=== PATIENT | female | born 1995 | race Caucasian/White ===

== ENCOUNTER 2021-01-10 14:29 | Outpatient (REF) | payer OTHER, SELFPAY | END 2021-01-10 14:30 | disposition home or self-care (01) | LOC: HO.LAB 14:29 | PROVIDERS: Visit Provider Internal Medicine | DX: Z12.4 Encounter for screening for malignant neoplasm of cervix (principal) | CPT/HCPCS: 88142 ==

== ENCOUNTER 2021-01-11 13:18 | Outpatient (REF) | payer OTHER, SELFPAY ==
[2021-01-11 16:26] LABS: Hematocrit 39.3 % (37-47); Hemoglobin 13.2 g/dl (12.0-16.0); Mean Corpuscular HGB Conc 33.6 g/dl (31.0-35.0); Mean Corpuscular Volume 95.4 fL (80-98); Mean Platelet Volume 10.4 fL (9.4-12.3); Platelet Count 310 X10*3/uL (160-400); Red Blood Count 4.12 X10*6/uL (4.20-5.50); Red Cell Distribution Width 12.1 % (11.0-16.0); White Blood Count 7.3 X10*3/uL (4.8-10.8)
[2021-01-11 16:31] LABS: Glucose Urine UA NEG (NEG); Leukocyte Esterase Urine NEG (NEG); Nitrite Urine NEG (NEG); Urine Blood TRACE (NEG); Urine Ketones NEG (NEG); Urine Protein NEG (NEG-TRACE)
[2021-01-11 16:36] LABS: Appearance Urine CLEAR; Color Urine YELLOW
[2021-01-11 16:48] LABS: Bacteria Urine TRACE /LPF; RBC Urine 0-2 /HPF (0); Squamous Epithelial Cell Urine TRACE /LPF; WBC Urine 0-2 /HPF (0-4)
[2021-01-11 16:53] LABS: Alanine Aminotransferase 11 U/L (0-31); Albumin Level 4.6 g/dL (3.5-5.0); Alkaline Phosphatase 63 U/L (39-117); Anion Gap 14 (12-20); Aspartate Amino Transferase 14 U/L (5-31); Bilirubin Total 0.5 mg/dL (0.0-1.0); Blood Urea Nitrogen 7 mg/dL (9-16); Calcium 9.5 mg/dL (8.4-10.2); Carbon Dioxide 20 mmol/L (22-29); Chloride 109 mmol/L (96-108); Cholesterol 237 mg/dL; Estimated Glomerular Filt Rate > 60; Glucose Fasting 84 mg/dL (60-99); HDL Cholesterol 42 mg/dL; LDL Cholesterol Calculated 171 mg/dl; Potassium 4.3 mmol/L (3.3-5.1); Sodium 139 mmol/L (135-145); Total Protein 7.4 g/dL (6.5-8.0); Triglycerides 120 mg/dL
[2021-01-11 17:13] LABS: TSH reflex Free T4 0.61 uIU/mL (0.32-4.0)
== END 2021-01-11 13:19 | disposition home or self-care (01) ==
LOC: HO.HMGCLDS 13:18
PROVIDERS: PCP Internal Medicine; Visit Provider Internal Medicine
DX: Z00.00 Encounter for general adult medical examination without abnormal findings (principal); J45.909 Unspecified asthma, uncomplicated
CPT/HCPCS: 36415; 80053; 80061; 81001; 84443; 85027

== ENCOUNTER 2022-04-23 08:28 | Outpatient (REF) | payer OTHER, SELFPAY ==
[2022-04-23 11:20] LABS: MANUAL DIFF FLAG NO
[2022-04-23 11:58] LABS: Alanine Aminotransferase 12 U/L (0-31); Albumin Level 4.6 g/dL (3.5-5.0); Alkaline Phosphatase 50 U/L (39-117); Anion Gap 14 (12-20); Aspartate Amino Transferase 17 U/L (5-31); Bilirubin Total 0.3 mg/dL (0.0-1.0); Blood Urea Nitrogen 12 mg/dL (9-16); Calcium 9.2 mg/dL (8.4-10.2); Carbon Dioxide 21 mmol/L (22-29); Chloride 107 mmol/L (96-108); Cholesterol 269 mg/dL; Estimated Glomerular Filt Rate > 60; Glucose Fasting 91 mg/dL (60-99); HDL Cholesterol 51 mg/dL; LDL Cholesterol Calculated 205 mg/dl; Potassium 4.1 mmol/L (3.3-5.1); Sodium 138 mmol/L (135-145); Total Protein 7.2 g/dL (6.5-8.0); Triglycerides 68 mg/dL
[2022-04-23 12:05] LABS: Basophils Absolute Auto 0.1 X10*3/uL (0.0-0.2); Basophils Percent Auto 0.7 % (0-2); Eosinophils Absolute Auto 0.4 X10*3/uL (0.0-0.4); Eosinophils Percent Auto 6.3 % (0-4); Hematocrit 37.3 % (37.0-47.0); Hemoglobin 12.7 g/dl (12.0-16.0); Imm Gran Abs Auto 0.01 X10*3/uL (0.00-0.03); Imm Gran Pct Auto 0.1 % (0.0-0.4); Lymphocytes Absolute Auto 2.3 X10*3/uL (1.2-4.9); Lymphocytes Percent Auto 34.1 % (20-40); Mean Corpuscular Hemoglobin 32.7 pg (27.0-33.0); Mean Corpuscular Volume 96.1 fL (80.0-98.0); Mean Platelet Volume 10.5 fL (9.4-12.3); Monocytes Absolute Auto 0.4 X10*3/uL (0.1-1.2); Monocytes Percent Auto 5.5 % (2-11); Neutrophils Absolute Auto 3.6 x10*3/uL (2.0-8.3); Neutrophils Percent Auto 53.3 % (45-73); Platelet Count 285 X10*3/uL (160-400); Red Blood Count 3.88 X10*6/uL (4.20-5.50); Red Cell Distribution Width 12.2 % (11.0-16.0); White Blood Count 6.7 X10*3/uL (4.8-10.8)
[2022-04-23 12:06] LABS: TSH reflex Free T4 0.99 uIU/mL (0.32-4.0)
== END 2022-04-23 08:29 | disposition home or self-care (01) ==
LOC: HO.HMGCLDS 08:28
PROVIDERS: PCP Internal Medicine; Visit Provider Internal Medicine
DX: Z00.00 Encounter for general adult medical examination without abnormal findings (principal); E78.5 Hyperlipidemia, unspecified
CPT/HCPCS: 36415; 80053; 80061; 84443; 85025

== ENCOUNTER 2022-10-01 08:33 | Outpatient (REF) | payer OTHER, SELFPAY ==
[2022-10-01 15:12] LABS: CT PCR NOT DETECTED (Not Detect.); NG PCR NOT DETECTED (Not Detect.)
[2022-10-02 12:18] LABS: BV Int Neg Control Negative (Negative); BV Int Pos Control Positive (Positive)
== END 2022-10-01 08:34 | disposition home or self-care (01) ==
LOC: HO.LAB 08:33
PROVIDERS: Visit Provider Advanced Practice Midwife
DX: Z01.419 Encounter for gynecological examination (general) (routine) without abnormal findings (principal); Z20.2 Contact with and (suspected) exposure to infections with a predominantly sexual mode of transmission
CPT/HCPCS: 0353U; 87480; 87510; 87660

== ENCOUNTER 2022-10-01 09:04 | Outpatient (REF) | payer OTHER, SELFPAY | END 2022-10-01 09:05 | disposition home or self-care (01) | LOC: HO.LNP 09:04 | PROVIDERS: Visit Provider Advanced Practice Midwife | DX: Z13.89 Encounter for screening for other disorder (principal) ==

== ENCOUNTER 2023-06-17 08:28 | Outpatient (AMB) | payer OTHER, SELFPAY ==
--- NOTE | 2023-06-17 08:30 | A.OFFPC_ITS ---
Vital Signs 06/17/23 08:31 Height 5 ft 2 in Weight 156 lb BMI 28.5 BP 112/68 Blood Pressure Location Rt brachial Position Sitting Pulse 95 Pulse Source Pulse Oximeter Pulse Oximetry (%) 100 Oxygen Delivery Method Room Air Intake Visit Reasons: phy Intake Note: Pt is here today for PE. Allergies No Known Allergies Allergy (Verified 06/17/23 08:32) Medication List - Last Reconciled 06/17/23 by Nancy Dalal MD albuterol sulfate 90 mcg/actuation (ProAir HFA) 2 puffs inhalation Q6H PRN epinephrine (EpiPen) 0.3 mg (0.3 mL) IM Q30M PRN fexofenadine (Essie Allergy) PO fluticasone propion-salmeterol 250-50 mcg/dose (Wixela Inhub) 1 inh inhalation BID levonorgestrel (Mirena) 1 device intrauterine ONCE montelukast 10 mg PO DAILY Tobacco use date assessed: 06/17/23 Dental Screening Dental Screen Date: 06/17/23 Did you have a dental visit in the last 12 months?: Yes Did you have a dental problem in the last 6 months where you did not have access to dental care?: No Was dental information given to patient?: Patient has dentist HPI phy HPI Details Patient presents for physical. She had an episode of asthma flareup in the spring after COVID infection. Patient's insurance did not cover Wixela and patient has been using albuterol only. She uses albuterol before exercise currently and denies wheezing or shortness of breath. COUNT INCLUDES THE [facility] Medical History (Updated 06/17/23 @ 09:14 by Nancy Dalal MD) Asthma Hyperlipidemia Annual physical exam Surgical History Hx of appendectomy History of tonsillectomy Family History (Updated 06/17/23 @ 08:34 by SULTANA Jefferson) Unknown No problems noted. Unknown No problems noted. Other Mental health disorder Substance use disorder Social History Household Members Other:: adopted, lives with boyfriend, works as a cook at [employer], Housing: Apartment Alcohol intake: current Alcohol intake frequency: a few times a month Patient Tobacco Use Status: Former Tobacco user Tobacco use type: Smokeless Tobacco e-Cigarette/Vaping Use: Currently Using Second Hand Smoke Exposure: No service: No Current occupational status: employed Current occupation: [employer] Current occupational exposures/hazards: No Sexual orientation: Straight/Heterosexual Gender identity: Female Cognitive needs: No Hearing needs: No Vision needs: Yes Questionnaire PHQ-9 Over the last 2 weeks, how often have you been bothered by any of the following problems? 1. Little interest or pleasure in doing things: not at all 2. Feeling down, depressed, or hopeless: not at all 3. Trouble falling or staying asleep, or sleeping too much: more than half the days 4. Feeling tired or having little energy: several days 5. Poor appetite or overeating: not at all 6. Feeling bad about yourself - or that you are a failure or have let yourself or your family down: not at all 7. Trouble concentrating on things, such as reading the newspaper or watching television: not at all 8. Moving or speaking so slowly that other people could have noticed. Or the opposite - being so fidgety or restless that you have been moving around a lot more than usual: not at all 9. Thoughts that you would be better off or of hurting yourself in some way: not at all Total score: 3 Depression Screening Interpretation: Negative Depression Screening Done: Yes [id number] - PHQ-9 Billing: Patient declined-do not bill Source: Developed by Drs. Ab Lopez, Janki Fuentes, Claude Aden and colleagues, with an educational uday from [employer]. Thrive Questionnaire Date Thrive assessed: 06/17/23 I am a: Patient What is your living situation today?: I have a steady place to live Within the past 12 months, did the food you bought not last and you didn't have the money to get more?: Never true Within the past 12 months, did you worry whether your food would run out before you got money to buy more?: Never true Do you have trouble paying for medicines?: No Do you have trouble getting transportation to medical appointments?: No Do you have trouble paying your heating and electricity bill?: No Do you have trouble taking care of your child, family member or friend?: No Do you have trouble with day-to-day activities such as bathing, preparing meals, shopping, managing finances, etc.?: No Are you currently unemployed and looking for a job?: No Are you interested in more education?: No Please select the resources that you would like help with: None AUDIT C Alcohol Use Questionnaire (AUDIT-C) 1. How often do you have a drink containing alcohol?: Monthly or less 2. How many drinks containing alcohol do you have on a typical day when you are drinking?: 1 or 2 3. How often do you have six or more drinks on one occasion?: Never Total Score: 1 BARBARA-7 AMB Questionnaire BARBARA-7 Date BARBARA - 7 assessed: 06/17/23 Feeling nervous, anxious, or on edge: 0 = Not at all Not being able to stop or control worryin = Not at all Worrying too much about different things: 0 = Not at all Trouble relaxin = Not at all Being so restless that it is hard to sit still: 0 = Not at all Becoming easily annoyed or irritable: 0 = Not at all Feeling afraid as if something awful might happen: 0 = Not at all Total BARBARA-7 score (0-4 normal; 5-9 mild; 10-14 moderate; 15-21 severe): 0 Source: Developed by Drs. Ab Lopez, Janki Fuentes, Claude Aden and colleagues, with an educational uday from [employer]. Review of Systems Const All systems reviewed & are unremarkable except as noted in HPI and below Reports no additional complaints Eyes Reports no additional complaints ENT Reports no additional complaints Card Reports no additional complaints Resp Reports no additional complaints GI Reports no additional complaints Reports no additional complaints Physical exam (Primary Care) Vital Signs: Last Vital Signs Pulse 95 06/17/23 08:31 BP 112/68 06/17/23 08:31 Pulse Ox 100 06/17/23 08:31 Oxygen Delivery Method Room Air 06/17/23 08:31 BMI result Body Mass Index 28.5 Tobacco/Smoking Status: Tobacco use Status Tobacco use date assessed 06/17/23 06/17/23 08:36 Patient Tobacco Use Status Former Tobacco user 06/17/23 08:30 Tobacco use type Smokeless Tobacco 06/17/23 08:30 e-Cigarette/Vaping Use Currently Using 06/17/23 08:30 PHQ-9: PHQ-9 Score PHQ-9: Total score 3 06/17/23 09:09 Depression Screening Interpretation: Negative Thrive Assessment: Date of Thrive Assessment Date Thrive assessed 06/17/23 06/17/23 09:09 Const General: no acute distress HENMT Head: Yes normal to inspection Ears: hearing grossly normal bilaterally General nose exam: Normal external nose present Face and sinus: Yes normal facial exam Mouth: Normal oral and palatal mucosa present Throat: Yes posterior oropharynx normal Eyes General: appearance normal, both eyes and all related structures Neck Neck: Yes no lymphadenopathy and Yes supple Resp Effort & Inspection: normal respiratory effort Auscultation: clear to auscultation bilaterally Cardio Rhythm: regular rhythm Heart sounds: S1 normal heart sound present and S2 normal heart sound present GI Inspection: Yes normal to inspection Palpation (GI): Soft to palpation Percussion: Yes normal to percussion Auscultation: normal bowel sounds Assessment and Plan Assessment & Plan (1) Seasonal allergies: Code(s): J30.2 - Other seasonal allergic rhinitis Plan: Continue antihistamine and montelukast, patient will be referred to [facility] for allergy testing (2) Hyperlipidemia: Code(s): E78.5 - Hyperlipidemia, unspecified Plan: Low-cholesterol diet and regular physical activity discussed with the patient to have blood work today (3) Asthma: Code(s): J45.909 - Unspecified asthma, uncomplicated Plan: Patient will continue montelukast and albuterol as needed until the beginning of spring when she was advised to start Flovent 110 1 puff twice a day. Patient will follow-up in 4 months (4) Annual physical exam: Code(s): Z00.00 - Encounter for general adult medical examination without abnormal findings Plan: Well-balanced diet regular physical activity discussed with the patient she is up-to-date with the Pap smear by mental health assistant Orders: Orders Comprehensive Jean. Panel Fast Today E78.5 - Hyperlipidemia, unspecified Lipid Panel Today E78.5 - Hyperlipidemia, unspecified Referrals Allergy & Immunology Referral J30.2 - Other seasonal allergic rhinitis Medications: New fluticasone propionate 100 mcg/actuation (Flovent Diskus) 1 inh inhalation BID 60 ea 3RF Discontinued fluticasone propion-salmeterol 250-50 mcg/dose (Wixela Inhub) Discontinued Reason: Doctor's Order 1 inh inhalation BID 60 ea 4RF Coding Level of Care Code Est Pt Prev Care 18-39y(06521) Diagnoses Seasonal allergies J30.2 Hyperlipidemia E78.5 Asthma J45.909 Annual physical exam Z00.00
[2023-06-17 08:31] VITALS: BP 112/68; PULSE 95; O2SAT 100; BMI 28.5
== END 2023-06-17 09:19 | disposition home or self-care (01) ==
PROVIDERS: Visit Provider Internal Medicine
DX: Z00.00 Encounter for general adult medical examination without abnormal findings (principal); J30.2 Other seasonal allergic rhinitis; E78.5 Hyperlipidemia, unspecified
CPT/HCPCS: 99395

== ENCOUNTER 2023-06-17 09:12 | Outpatient (REF) | payer OTHER, SELFPAY ==
[2023-06-17 11:11] LABS: Alanine Aminotransferase 18 U/L (0-31); Albumin Level 4.6 g/dL (3.5-5.0); Alkaline Phosphatase 61 U/L (39-117); Anion Gap 12 (12-20); Aspartate Amino Transferase 16 U/L (5-31); Bilirubin Total 0.6 mg/dL (0.0-1.0); Blood Urea Nitrogen 11 mg/dL (9-16); Calcium 9.7 mg/dL (8.4-10.2); Carbon Dioxide 24 mmol/L (22-29); Chloride 106 mmol/L (96-108); Cholesterol 266 mg/dL (<200); Estimated Glomerular Filt Rate > 60; Glucose Fasting 87 mg/dL (60-99); HDL Cholesterol 47 mg/dL (>40); LDL Cholesterol Calculated 201 mg/dL (<100); Potassium 3.9 mmol/L (3.3-5.1); Sodium 138 mmol/L (135-145); Total Protein 7.8 g/dL (6.5-8.0); Triglycerides 94 mg/dL (<150)
== END 2023-06-17 09:13 | disposition home or self-care (01) ==
LOC: HO.HMGCLDS 09:12
PROVIDERS: PCP Internal Medicine; Visit Provider Internal Medicine
DX: E78.5 Hyperlipidemia, unspecified (principal)
CPT/HCPCS: 36415; 80053; 80061

== ENCOUNTER 2023-08-30 13:11 | Outpatient (AMB) | payer OTHER, SELFPAY ==
[2023-08-30 13:14] VITALS: BP 98/66; PULSE 109; TEMP 36.6; O2SAT 97; BMI 28.7
--- NOTE | 2023-08-30 13:14 | AM.OFFWIN_ITS ---
Intake Vital Signs 08/30/23 13:14 Height 5 ft 2 in Weight 157 lb BMI 28.7 BP 98/66 Blood Pressure Location Rt brachial Position Sitting Pulse 109 H Pulse Source Pulse Oximeter Temp 97.8 F Temp Source Oral Pulse Oximetry (%) 97 Oxygen Delivery Method Room Air Intake Visit Reasons: EP ?sinus congestion Intake Note: Pt is here today c/o sinus congestion x1wk Patient Tobacco Use Status: Former Tobacco user Allergies No Known Allergies Allergy (Verified 08/30/23 13:16) HPI HPI Comments History of Present Illness Details 27-year-old female who presents for sinus pain pressure and congestion x1 week. Denies fevers chills endorses sore throat. Negative home COVID test PFSH Medical History (Updated 06/17/23 @ 09:14 by Nancy Dalal MD) Asthma Hyperlipidemia Annual physical exam Surgical History Hx of appendectomy History of tonsillectomy Family History (Updated 06/17/23 @ 08:34 by SULTANA Jefferson) Unknown No problems noted. Unknown No problems noted. 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 Alcohol intake: current Alcohol intake frequency: a few times a month Patient Tobacco Use Status: Former Tobacco user Tobacco use type: Smokeless Tobacco e-Cigarette/Vaping Use: Currently Using Second Hand Smoke Exposure: No service: No Current occupational status: employed Current occupation: [employer] Current occupational exposures/hazards: No Sexual orientation: Straight/Heterosexual Gender identity: Female Cognitive needs: No Hearing needs: No Vision needs: Yes Review of Systems ENT Reports facial pain, Reports sinus pain, Reports sinus pressure and Reports sore throat Physical Exam Vital Signs: Last Vital Signs Temp 97.8 F 08/30/23 13:14 Pulse 109 H 08/30/23 13:14 BP 98/66 08/30/23 13:14 Pulse Ox 97 08/30/23 13:14 Oxygen Delivery Method Room Air 08/30/23 13:14 BMI result Body Mass Index 28.7 Const General: cooperative, healthy appearing, no acute distress and alert Orientation/consciousness: patient oriented x3 Limitations: no limitations HEENT Other: TTP over the frontal and maxillary sinuses bilaterally Head: Yes normal to inspection Ears: hearing grossly normal bilaterally General nose exam: Normal external nose present Resp Effort & Inspection: normal respiratory effort and able to speak in complete sentences Cardio Rate: regular rate Skin General skin exam: no rashes or lesions noted Neuro General: patient oriented x3 Extrem General: Yes normal to inspection Assessment & Plan Assessment & Plan (1) Acute sinusitis: Code(s): J01.90 - Acute sinusitis, unspecified Qualifiers: Sinusitis location: frontal Recurrence: non-recurrent Qualified Code(s): J01.10 - Acute frontal sinusitis, unspecified Plan: Amoxicillin b.i.d. times 10 Medications: New amoxicillin-pot clavulanate 875-125 mg 1 tab PO BID 10 days 20 tabs 0RF Coding Level of Care Code Est Pt Level 3 (66826) Diagnoses Acute non-recurrent frontal sinusitis J01.10 Sinusitis location: frontal Recurrence: non-recurrent
== END 2023-08-30 13:33 | disposition home or self-care (01) ==
PROVIDERS: PCP Internal Medicine; Visit Provider Physician Assistant
DX: J01.10 Acute frontal sinusitis, unspecified (principal)
CPT/HCPCS: 99051; 99213

== ENCOUNTER 2023-12-16 08:46 | Outpatient (AMB) | payer OTHER, SELFPAY ==
[2023-12-16 08:47] VITALS: BP 106/70; PULSE 86; O2SAT 98; BMI 28.3
--- NOTE | 2023-12-16 08:47 | A.OFFPC_ITS ---
Vital Signs 12/16/23 08:47 Height 5 ft 2 in Weight 155 lb BMI 28.3 BP 106/70 Blood Pressure Location Lt brachial Position Sitting Pulse 86 Pulse Source Pulse Oximeter Pulse Oximetry (%) 98 Oxygen Delivery Method Room Air Intake Visit Reasons: 6 month fu Intake Note: Pt is here today for 6 months follow up visit. Allergies No Known Allergies Allergy (Verified 12/16/23 08:50) Medication List - Last Reconciled 12/16/23 by Nancy Dalal MD albuterol sulfate 90 mcg/actuation (ProAir HFA) 2 puffs inhalation Q6H PRN epinephrine (EpiPen) 0.3 mg (0.3 mL) IM Q30M PRN fexofenadine (Essie Allergy) PO fluticasone propionate 100 mcg/actuation (Flovent Diskus) 1 inh inhalation BID levonorgestrel (Mirena) 1 device intrauterine ONCE montelukast 10 mg PO DAILY Tobacco use date assessed: 12/16/23 Dental Screening Dental Screen Date: 12/16/23 Did you have a dental visit in the last 12 months?: Yes Did you have a dental problem in the last 6 months where you did not have access to dental care?: No Was dental information given to patient?: Patient has dentist HPI 6 month fu HPI Details Pt presents for f/u asthma. Pt uses Flovent 1-2 a week. Allergic rhinitis is controlled on montelukast and fexofenadine [facility] Medical History (Updated 06/17/23 @ 09:14 by Nacny Dalal MD) Asthma Hyperlipidemia Annual physical exam Surgical History Hx of appendectomy History of tonsillectomy Family History Unknown No problems noted. Unknown No problems noted. Other Mental health disorder Substance use disorder Social History Household Members Other:: adopted, lives with boyfriend, works as a cook at [employer], Housing: Apartment Alcohol intake: current Alcohol intake frequency: a few times a month Patient Tobacco Use Status: Former Tobacco user Tobacco use type: Smokeless Tobacco e-Cigarette/Vaping Use: Currently Using Second Hand Smoke Exposure: No service: No Current occupational status: employed Current occupation: cook Current occupational exposures/hazards: No Sexual orientation: Straight/Heterosexual Gender identity: Female Cognitive needs: No Hearing needs: No Vision needs: Yes Questionnaire PHQ-9 Over the last 2 weeks, how often have you been bothered by any of the following problems? 1. Little interest or pleasure in doing things: not at all 2. Feeling down, depressed, or hopeless: not at all 3. Trouble falling or staying asleep, or sleeping too much: more than half the days 4. Feeling tired or having little energy: more than half the days 5. Poor appetite or overeating: not at all 6. Feeling bad about yourself - or that you are a failure or have let yourself or your family down: not at all 7. Trouble concentrating on things, such as reading the newspaper or watching television: not at all 8. Moving or speaking so slowly that other people could have noticed. Or the opposite - being so fidgety or restless that you have been moving around a lot more than usual: not at all 9. Thoughts that you would be better off or of hurting yourself in some way: not at all Total score: 4 Depression Screening Interpretation: Negative Depression Screening Done: Yes Source: Developed by Drs. Ab Lopez, Janki Fuentes, Claude Aden and colleagues, with an educational uday from [employer]. Thrive Questionnaire Date Thrive assessed: 12/16/23 I am a: Patient What is your living situation today?: I have a steady place to live Within the past 12 months, did the food you bought not last and you didn't have the money to get more?: Never true Within the past 12 months, did you worry whether your food would run out before you got money to buy more?: Never true Do you have trouble paying for medicines?: No Do you have trouble getting transportation to medical appointments?: No Do you have trouble paying your heating and electricity bill?: No Do you have trouble taking care of your child, family member or friend?: No Do you have trouble with day-to-day activities such as bathing, preparing meals, shopping, managing finances, etc.?: No Are you currently unemployed and looking for a job?: No Are you interested in more education?: No Please select the resources that you would like help with: None THRIVE Score: 0 AUDIT C Alcohol Use Questionnaire (AUDIT-C) 1. How often do you have a drink containing alcohol?: Monthly or less 2. How many drinks containing alcohol do you have on a typical day when you are drinking?: 1 or 2 3. How often do you have six or more drinks on one occasion?: Never Total Score: 1 BARBARA-7 AMB Questionnaire BARBARA-7 Date BARBARA - 7 assessed: 12/16/23 Feeling nervous, anxious, or on edge: 0 = Not at all Not being able to stop or control worryin = Not at all Worrying too much about different things: 0 = Not at all Trouble relaxin = Not at all Being so restless that it is hard to sit still: 1 = Several days Becoming easily annoyed or irritable: 1 = Several days Feeling afraid as if something awful might happen: 0 = Not at all Total BARBARA-7 score (0-4 normal; 5-9 mild; 10-14 moderate; 15-21 severe): 2 Source: Developed by Drs. Ab Lopez, Janki Fuentes, Claude Aden and colleagues, with an educational uday from [employer]. Review of Systems Const All systems reviewed & are unremarkable except as noted in HPI and below Reports no additional complaints Eyes Reports no additional complaints ENT Reports no additional complaints Card Reports no additional complaints Resp Reports no additional complaints GI Reports no additional complaints Reports no additional complaints Physical exam (Primary Care) Vital Signs: Last Vital Signs Pulse 86 12/16/23 08:47 BP 106/70 12/16/23 08:47 Pulse Ox 98 12/16/23 08:47 Oxygen Delivery Method Room Air 12/16/23 08:47 BMI result Body Mass Index 28.3 Tobacco/Smoking Status: Tobacco use Status Tobacco use date assessed 12/16/23 12/16/23 08:59 Patient Tobacco Use Status Former Tobacco user 12/16/23 08:48 Tobacco use type Smokeless Tobacco 12/16/23 08:48 e-Cigarette/Vaping Use Currently Using 12/16/23 08:48 PHQ-9: PHQ-9 Score PHQ-9: Total score 4 06/04/24 08:59 Depression Screening Interpretation: Negative Thrive Assessment: Date of Thrive Assessment Date Thrive assessed 12/16/23 12/16/23 08:59 Const General: no acute distress HENMT Head: Yes normal to inspection Ears: hearing grossly normal bilaterally Face and sinus: Yes normal facial exam Mouth: Normal oral and palatal mucosa present Eyes General: appearance normal, both eyes and all related structures Neck Neck: Yes no lymphadenopathy and Yes supple Resp Effort & Inspection: normal respiratory effort Auscultation: clear to auscultation bilaterally Cardio Rhythm: regular rhythm Heart sounds: S1 normal heart sound present and S2 normal heart sound present Assessment and Plan Assessment & Plan (1) Hyperlipidemia: Code(s): E78.5 - Hyperlipidemia, unspecified Plan: Continue low-cholesterol diet regular exercise check lipid profile today and 6 months (2) Asthma: Code(s): J45.909 - Unspecified asthma, uncomplicated Plan: Continue Flovent will lower the dose to 50 mcg and albuterol as needed (3) Seasonal allergies: Code(s): J30.2 - Other seasonal allergic rhinitis Plan: Continue current medications Orders: Orders Lipid Panel Today E78.5 - Hyperlipidemia, unspecified Lipid Panel 6 Months E78.5 - Hyperlipidemia, unspecified, Z00.00 - Encounter for general adult medical examination without abnormal findings TSH reflex Free T4 6 Months E78.5 - Hyperlipidemia, unspecified, Z00.00 - Encounter for general adult medical examination without abnormal findings Comprehensive [place]. Panel Fast 6 Months E78.5 - Hyperlipidemia, unspecified, Z00.00 - Encounter for general adult medical examination without abnormal findings Complete Blood Count Auto Diff 6 Months E78.5 - Hyperlipidemia, unspecified, Z00.00 - Encounter for general adult medical examination without abnormal findings Medications: New fluticasone propionate 50 mcg/actuation 1 inh inhalation BID 60 ea 3RF Discontinued fluticasone propionate 100 mcg/actuation (Flovent Diskus) Discontinued Reason: Doctor's Order 1 inh inhalation BID 60 ea 3RF Coding Level of Care Code Est Pt Level 4 (00851) Diagnoses Hyperlipidemia E78.5 Asthma J45.909 Seasonal allergies J30.2
== END 2023-12-16 09:29 | disposition home or self-care (01) ==
PROVIDERS: Visit Provider Internal Medicine
DX: E78.5 Hyperlipidemia, unspecified (principal); J45.909 Unspecified asthma, uncomplicated; J30.2 Other seasonal allergic rhinitis
CPT/HCPCS: 99214

== ENCOUNTER 2023-12-16 09:19 | Outpatient (REF) | payer OTHER, SELFPAY ==
[2023-12-16 11:04] LABS: Cholesterol 231 mg/dL (<200); HDL Cholesterol 45 mg/dL (>40); LDL Cholesterol Calculated 167 mg/dL (<100); Triglycerides 95 mg/dL (<150)
== END 2023-12-16 09:20 | disposition home or self-care (01) ==
LOC: HO.HMGCLDS 09:19
PROVIDERS: PCP Internal Medicine; Visit Provider Internal Medicine
DX: E78.5 Hyperlipidemia, unspecified (principal)
CPT/HCPCS: 36415; 80061

== ENCOUNTER 2023-12-24 14:06 | Outpatient (REF) | payer OTHER, SELFPAY ==
[2023-12-31 20:44] LABS: HPV mRNA E6/E7 rflx Not Detected (Not Detected)
== END 2023-12-24 14:07 | disposition home or self-care (01) ==
LOC: HO.LNP 14:06
PROVIDERS: PCP Internal Medicine; Visit Provider Advanced Practice Midwife
DX: Z12.4 Encounter for screening for malignant neoplasm of cervix (principal)
CPT/HCPCS: 87624; 88142

== ENCOUNTER 2023-12-24 14:06 | Outpatient (AMB) | payer OTHER, SELFPAY ==
--- NOTE | 2023-12-24 14:11 | A.OFFVIS_ITS ---
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 Doing well with no judicial reporter concerns. Feels anxious, more so to be outside in public. Moved to the area in 2020. Feels her hormones may be off, decreased libido, and cries more often. Admits feelings over her adoption have surfaced after meeting with her biologic mother and upcoming wedding plans. 04/20/24. She tries to eat healthy and stays active with exercise. Regular monthly menses. Currently is sexually active. She denies vaginal itching and irritation. STI screening offered; she declines. Pt. is adopted. Last pap smear 2020, negative. [facility] Medical History (Updated 12/24/23 @ 15:09 by Kathy Tabor CNM) Adopted Asthma Hyperlipidemia Annual physical exam Surgical History Hx of appendectomy History of tonsillectomy Family History Unknown No problems noted. Unknown No problems noted. Other Mental health disorder Substance use disorder Social History Household Members Other:: adopted, lives with boyfriend, works as a cook at [employer], Housing: Apartment Alcohol intake: current Alcohol intake frequency: a few times a month Patient Tobacco Use Status: Former Tobacco user Tobacco use type: Smokeless Tobacco e-Cigarette/Vaping Use: Currently Using Second Hand Smoke Exposure: No service: No Current occupational status: employed Current occupation: cook Current occupational exposures/hazards: No Sexual orientation: Straight/Heterosexual Gender identity: Female Cognitive needs: No Hearing needs: No Vision needs: Yes Female Reproductive History Menstrual Age of Menarche: 12 Duration of menses: other control method: progestin IUCD Total pregnancies: 1 Ab induced: 1 Date of last pap smear: 01/11/21 (negative) History of abnormal pap smear: No Review of Systems Const All systems reviewed & are unremarkable except as noted in HPI and below Reports as per HPI Eyes Reports no additional complaints ENT Reports no additional complaints Card Reports no additional complaints Resp Reports no additional complaints GI Reports as per HPI and Reports no additional complaints Reports as per HPI Musc Reports no additional complaints Skin/Breast Reports as per HPI Neuro Reports no additional complaints Psych Reports no additional complaints Endo Reports no additional complaints Be/Lymph Reports no additional complaints Aller/Immun Reports no additional complaints Physical Exam Vital Signs: Last Vital Signs BP 100/68 12/24/23 14:12 BMI result Body Mass Index 28.2 Const General: cooperative, healthy appearing, no acute distress, well developed and alert Orientation/consciousness: patient oriented x3 HEENT Head: Yes normal to inspection Eyes General: appearance normal, both eyes and all related structures Neck Neck: Yes normal visual inspection Thyroid: Thyroid normal Chest Chest palpation & inspection: normal inspection of the chest and other (no p uckering, dimpling, peau de orange, retraction, discharge, masses) Breast/axilla inspection: normal inspection of the breasts Breast/axilla palpation: normal palpation of the breasts Resp Effort & Inspection: normal respiratory effort GI Inspection: Yes normal to inspection and Yes scar Palpation (GI): Soft to palpation Rectal Exam - Female: deferred General: Yes bladder normal to palpation External Female Exam: normal external appearance and normal appearance of the urethra Speculum Exam - Vagina: normal appearance of the vagina, normal palpation and normal vaginal discharge Speculum Exam - Cervix: normal appearance of the cervix, normal palpation and Other cervical findings present (IUD strings present at the os, bled with Pap) Bimanual exam- vagina & uterus: normal bimanual exam, normal palpation, uterine size normal, bladder normal to palpation, normal palpation and non-tender Bimanual Exam- Adnexa, other: no masses Skin General skin exam: no rashes or lesions noted Rashes: no rashes Neuro General: patient oriented x3 Cognition (Neuro): normal cognition Extrem General: Yes normal to inspection Psych Attitude: cooperative Thought process: Normal thought process present Assessment & Plan Assessment & Plan (1) Encounter for well woman exam with routine gynecological exam: Code(s): Z01.419 - Encounter for gynecological examination (general) (routine) without abnormal findings Category: Medical Plan Discussed: Current recommendations for pap smears per ASCCP guidelines. Breast awareness and periodic breast exams. Maintain a healthy lifestyle including a well balanced diet and routine exercise. Encouraged therapy can send referral if needed with her insurance. Advised to look up psychology today website for some references. Schedule a 30 minute appointment if has concerns re: libido and desires a follow up for this topic. Plan continuing with the Mirena, most likely best option for her hormonal concerns, IUD for now if she wants to change the device out or do something different she will need to make a follow up appointment to discuss her options. She has not interested in a future at this time. Patient verbalizes understanding and agrees to the plan of care. She was given opportunity to ask questions and all questions were answered to the best of my ability. RTO in one year for annual judicial reporter examination. This note is constructed using voice recognition software. While every effort has been made to ensure accuracy, staffing executive errors may have been included. Orders: Orders Pap Smear Today Z12.4 - Encounter for screening for malignant neoplasm of cervix Coding Level of Care Code Est Pt Prev Care 18-39y(58015) Diagnoses Encounter for well woman exam with routine gynecological exam Z01.419
[2023-12-24 14:12] VITALS: BP 100/68; BMI 28.2
== END 2023-12-24 14:55 | disposition home or self-care (01) ==
LOC: HO.HWS 14:06
PROVIDERS: PCP Internal Medicine; Visit Provider Advanced Practice Midwife
DX: Z01.419 Encounter for gynecological examination (general) (routine) without abnormal findings (principal)
CPT/HCPCS: 99395

== ENCOUNTER 2023-12-31 08:27 | Outpatient (AMB) | payer OTHER, SELFPAY ==
--- NOTE | 2023-12-31 08:59 | MHC.OFFVIS ---
Vital Signs 12/31/23 09:01 Height 5 ft 2 in Weight 155 lb BMI 28.3 BP 98/56 L Blood Pressure Location Lt radial Position Sitting Intake Visit Reasons: Mirena exchange Intake Note: No concerns, Mirena removal/insertion Allergies peanuts Allergy (Mild, Uncoded 12/24/23 14:14) Anaphylaxis Is last menstrual period known: Yes Last menstrual period: 12/08/23 Post menopausal: No Patient : No HPI Comments Details: Patient is here for an Mirena IUD insertion and removal. She was counseled on the side effects including: menstrual cycle changes, pain, infection, bleeding, or expulsion. Risks of injury to the vagina, cervix, uterus, tubes, ovaries, bowel, bladder, and any adjacent tissue, resulting in nerve damage, scarring, and pain. Risks complications for the procedure that may require other test including ultrasounds, Xray, CT or MRI scan, surgery, anesthesia, blood transfusion. A urine test was completed and was negative. She was consented for the IUD insertion and has signed the consent form. All questions were answered. [facility] Medical History (Updated 12/24/23 @ 15:09 by Kathy Tabor CNM) Adopted Asthma Hyperlipidemia Annual physical exam Surgical History Hx of appendectomy History of tonsillectomy Family History Unknown No problems noted. Unknown No problems noted. Other Mental health disorder Substance use disorder Social History Household Members Other:: adopted, lives with boyfriend, works as a cook at [employer], Housing: Apartment Alcohol intake: current Alcohol intake frequency: a few times a month Patient Tobacco Use Status: Former Tobacco user Tobacco use type: Smokeless Tobacco e-Cigarette/Vaping Use: Currently Using Second Hand Smoke Exposure: No service: No Current occupational status: employed Current occupation: cook Current occupational exposures/hazards: No Sexual orientation: Straight/Heterosexual Gender identity: Female Cognitive needs: No Hearing needs: No Vision needs: Yes Female Reproductive History Menstrual Age of Menarche: 12 Date of last menstrual period: 12/08/23 control method: progestin IUCD (Mirena inserted 12/31/2023) Physical Exam Vital Signs: Last Vital Signs BP 98/56 L 12/31/23 09:01 BMI result Body Mass Index 28.3 Office Procedures IUD Insert/Removal Details 51511-HAE Insertion 08784-CCV Removal Procedure code (CPT) selection complete Contraception Insert/Removal Details Details: The patient is here today for a Mirena IUD removal/ reinsertion. She was counseled on the side effects including: menstrual cycle changes, pain, infection, bleeding, or expulsion. A urine test was completed and was negative. She was consented for the IUD insertion and has signed the consent form. All questions were answered. The patient was placed in the dorsal lithotomy position. A speculum was inserted vaginally and the cervix and strings were visualized at the os. A ring forcep was utilized, and the patient was asked to give a deep cough while the strings were grasped and gently tugged at the same time, removing the IUD device intact. A single toothed tenaculum was applied to the cervix for stabilization, and the uterus was sounded to 7cm. The device was inserted and released with a gentle motion. Bleeding from the tenaculum sites and the procedure were minimal. The strings were trimmed to 3cm. All of the equipment was removed and the bimanual was normal, no tip was palpable at the cervical os. The patient tolerated the procedure well and left the office in good condition. Post IUD Insertion Care: There may be some post insertion bleeding for several days that is usually light and can turn to a light brown or pink in color. Mild cramping may occur. Nothing in the vagina including: tampons, douching or intimacy for several days. You may take an over the counter mild analgesia like Tylenol or Advil (if no allergies), per the manufacturers recommendations on dosing and frequency. Follow the directions completely. Call the office if any: fever (over 100.4), flu like symptoms, abdominal pain, worsening cramping not resolved with over the counter medications, foul smelling vaginal odor, signs of infected appearing discharge, or heavy bleeding. Use a condom for a back up method if indicated for 7 days. Always use a condom for STI prevention; IUD's are not protective against STD's. Return to the office in 4-6 weeks for IUD recheck. This note is constructed using voice recognition software. While every effort has been made to ensure accuracy, home theater expert errors may have been included. 63720 - Insertion and Removal Office Meds Mirena 21 mcg/24 hours (8 yrs) 52 mg intrauterine device Performing Provider: Kathy Tabor CNM Performing Location: [facility] Administered by: Tracy Ross on 12/31/23 09:32 Dose Route Admin Location Dispensed Lot Number Expiration Date [facility] Cooling Machine Operator 1 device intrauterine [facility] [place] 1 device [id number] 03/13/26 [id number] [employer] Results AMB Test Urine AMB Test Urine Negative Last Edit by Tracy Ross on 12/31/23 09:16 Results Reviewed Results Reviewed: Laboratory Last Values [facility] Clinic Negative 12/31/23 09:16 Assessment & Plan Assessment & Plan (1) Encounter for IUD removal and reinsertion: Code(s): Z30.433 - Encounter for removal and reinsertion of intrauterine contraceptive device Plan GC chlamydia obtained. See procedure notes. Orders: Orders AMB HCG Urine Test Today Z32.02 - Encounter for test, result negative CT NG by PCR Today Z32.02 - Encounter for test, result negative AMB IUD Insertion/Removal - Practice Supplied Today Z30.430 - Encounter for insertion of intrauterine contraceptive device Coding Level of Care Code Procedure Only Diagnoses Encounter for IUD removal and reinsertion Z30.433 CPT Codes Details - CPT: 68952-LJX Insertion ([id number]) Details - CPT: 47535-KUY Removal ([id number]) Details - Contraception: 48791 - Insertion and Removal ([id number])
[2023-12-31 09:01] VITALS: BP 98/56; BMI 28.3
== END 2023-12-31 09:36 | disposition home or self-care (01) ==
PROVIDERS: PCP Internal Medicine; Visit Provider Advanced Practice Midwife
DX: Z30.433 Encounter for removal and reinsertion of intrauterine contraceptive device (principal); Z32.02 Encounter for pregnancy test, result negative
CPT/HCPCS: 58300; 58301

== ENCOUNTER 2023-12-31 08:27 | Outpatient (REF) | payer OTHER, SELFPAY ==
[2023-12-31 18:42] LABS: CT PCR NOT DETECTED (Not Detect.); NG PCR NOT DETECTED (Not Detect.)
== END 2023-12-31 08:28 | disposition home or self-care (01) ==
LOC: HO.LAB 08:27
PROVIDERS: PCP Internal Medicine; Visit Provider Advanced Practice Midwife
DX: Z30.433 Encounter for removal and reinsertion of intrauterine contraceptive device (principal); Z32.02 Encounter for pregnancy test, result negative
CPT/HCPCS: 0353U; 58300; 58301; 81025; J7298

== ENCOUNTER 2024-02-11 10:39 | Outpatient (AMB) | payer OTHER, SELFPAY ==
--- NOTE | 2024-02-11 10:45 | A.OFFVIS_ITS ---
Vital Signs 02/11/24 10:46 BP 100/70 Intake Visit Reasons: 6 week iud check Quality Cloth Tester: Quality Cloth Tester Present (Arleen) Allergies peanuts Allergy (Mild, Uncoded 02/11/24 10:46) Anaphylaxis HPI Comments Details: Patient is here today for a follow up Mirena IUD check inserted 12/2023. Overall doing well with no concerns today. History of unsatisfactory Pap due to obscuring blood. [facility] Medical History (Updated 12/24/23 @ 15:09 by Kathy Tabor CNM) Adopted Asthma Hyperlipidemia Annual physical exam Surgical History Hx of appendectomy History of tonsillectomy Family History Unknown No problems noted. Unknown No problems noted. Other Mental health disorder Substance use disorder Social History Household Members Other:: adopted, lives with boyfriend, works as a cook at [email or web address], Housing: Apartment Alcohol intake: current Alcohol intake frequency: a few times a month Patient Tobacco Use Status: Former Tobacco user Tobacco use type: Smokeless Tobacco e-Cigarette/Vaping Use: Currently Using Second Hand Smoke Exposure: No service: No Current occupational status: employed Current occupation: cook Current occupational exposures/hazards: No Sexual orientation: Straight/Heterosexual Gender identity: Female Cognitive needs: No Hearing needs: No Vision needs: Yes Female Reproductive History Menstrual Age of Menarche: 12 control method: progestin IUCD (Mirena 12/31/23) Review of Systems Const All systems reviewed & are unremarkable except as noted in HPI and below Physical Exam Vital Signs: Last Vital Signs BP 100/70 02/11/24 10:46 Const General: cooperative, healthy appearing and no acute distress Orientation/consciousness: patient oriented x3 GI Inspection: Yes normal to inspection Palpation (GI): Soft to palpation and Other GI palpation findings present (Nontender) Rectal Exam - Female: visual inspection normal General: Yes bladder normal to palpation External Female Exam: normal appearance of the urethra Speculum Exam - Vagina: normal appearance of the vagina, normal palpation and normal vaginal discharge Speculum Exam - Cervix: normal appearance of the cervix, normal palpation and Other cervical findings present (IUD strings present at the os) Bimanual exam- vagina & uterus: normal bimanual exam, normal palpation, uterine size normal, bladder normal to palpation, normal palpation, uterine shape normal and non-tender Bimanual Exam- Adnexa, other: normal adnexae Neuro General: patient oriented x3 Assessment & Plan Assessment & Plan (1) IUD check up: Code(s): Z30.431 - Encounter for routine checking of intrauterine contraceptive device Plan Scheduled for repeat Pap March. Reviewed warnings of when to call for bleeding, pelvic pain, pressure discomfort. All of her questions and concerns were addressed to the best of my ability and shared decision making. She is agreeable to the plan of care. This note is constructed using voice recognition software. While every effort has been made to ensure accuracy, debone processing supervisor errors may have been included. Coding Level of Care Code Est Pt Level 2 (66858) Diagnoses IUD check up Z30.431
[2024-02-11 10:46] VITALS: BP 100/70
== END 2024-02-11 11:18 | disposition home or self-care (01) ==
PROVIDERS: PCP Internal Medicine; Visit Provider Advanced Practice Midwife
DX: Z30.431 Encounter for routine checking of intrauterine contraceptive device (principal)
CPT/HCPCS: 99212

== ENCOUNTER → 2024-02-11 10:39 | Outpatient (BNVA) | payer OTHER, SELFPAY | PROVIDERS: PCP Internal Medicine; Visit Provider Advanced Practice Midwife ==

== ENCOUNTER 2024-04-06 10:34 | Outpatient (AMB) | payer OTHER, SELFPAY ==
--- NOTE | 2024-04-06 10:35 | A.OFFVIS_ITS ---
Intake Visit Reasons: 2 month repeat pap Manager Biologics: Manager Biologics Present (Arleen) Allergies peanuts Allergy (Mild, Uncoded 04/06/24 10:38) Anaphylaxis Is last menstrual period known: Yes Last menstrual period: 03/23/24 HPI Comments Details: Patient is here today for a repeat Pap smear due to unsatisfactory sample with obscuring blood. She is currently not bleeding today, and has no symptoms of itching or irritation. Current Mirena IUD user. [facility] Medical History (Updated 04/06/24 @ 11:05 by Kathy Tabor CNM) Adopted Asthma Hyperlipidemia Annual physical exam Surgical History Hx of appendectomy History of tonsillectomy Family History Unknown No problems noted. Unknown No problems noted. Other Mental health disorder Substance use disorder Social History Household Members Other:: adopted, lives with boyfriend, works as a cook at [employer], Housing: Apartment Alcohol intake: current Alcohol intake frequency: a few times a month Patient Tobacco Use Status: Former Tobacco user Tobacco use type: Smokeless Tobacco e-Cigarette/Vaping Use: Currently Using Second Hand Smoke Exposure: No service: No Current occupational status: employed Current occupation: [employer] Current occupational exposures/hazards: No Sexual orientation: Straight/Heterosexual Gender identity: Female Cognitive needs: No Hearing needs: No Vision needs: Yes Female Reproductive History Menstrual Age of Menarche: 12 Date of last menstrual period: 03/23/24 Date of last pap smear: 12/24/23 (unsat neg hpv) Review of Systems Const All systems reviewed & are unremarkable except as noted in HPI and below Physical Exam Const General: cooperative, healthy appearing and no acute distress Orientation/consciousness: patient oriented x3 GI Inspection: Yes normal to inspection Palpation (GI): Soft to palpation and Other GI palpation findings present (Nontender) Rectal Exam - Female: visual inspection normal General: Yes bladder normal to palpation External Female Exam: normal appearance of the urethra Speculum Exam - Vagina: normal appearance of the vagina, normal palpation and normal vaginal discharge Speculum Exam - Cervix: normal appearance of the cervix, normal palpation and Other cervical findings present (IUD strings present, bled with Pap) Bimanual exam- vagina & uterus: normal bimanual exam, normal palpation, uterine size normal, bladder normal to palpation, normal palpation, uterine shape normal and non-tender Bimanual Exam- Adnexa, other: normal adnexae Neuro General: patient oriented x3 Assessment & Plan Assessment & Plan (1) Unsatisfactory cytology of anal Papanicolaou smear: Code(s): R85.615 - Unsatisfactory cytologic smear of anus Category: Medical Plan Repeat Pap today, await results for plan of care. Annual exam scheduled for 12/31/2024. All of her questions and concerns were addressed to the best of my ability and shared decision making. She is agreeable to the plan of care. This note is constructed using voice recognition software. While every effort has been made to ensure accuracy, asbestos removal worker errors may have been included. Coding Level of Care Code Est Pt Level 3 (54214) Diagnoses Unsatisfactory cytology of anal Papanicolaou smear R85.615
== END 2024-04-06 11:38 | disposition home or self-care (01) ==
LOC: HO.HWS 10:34
PROVIDERS: PCP Internal Medicine; Visit Provider Advanced Practice Midwife
DX: R85.615 Unsatisfactory cytologic smear of anus (principal)
CPT/HCPCS: 99213

== ENCOUNTER 2024-04-06 10:34 | Outpatient (REF) | payer OTHER, SELFPAY ==
[2024-04-09 07:37] LABS: HPV mRNA E6/E7 Not Detected (Not Detected)
== END 2024-04-06 10:35 | disposition home or self-care (01) ==
LOC: HO.LNP 10:34
PROVIDERS: PCP Internal Medicine; Visit Provider Advanced Practice Midwife
DX: R87.615 Unsatisfactory cytologic smear of cervix (principal)
CPT/HCPCS: 87624; 88175

== ENCOUNTER 2024-06-28 07:59 | Outpatient (REF) | payer OTHER, SELFPAY ==
[2024-06-28 10:16] LABS: MANUAL DIFF FLAG NO
[2024-06-28 10:18] LABS: Basophils Percent Auto 0.7 % (0-2); Eosinophils Absolute Auto 0.4 X10*3/uL (0.0-0.4); Eosinophils Percent Auto 6.5 % (0-4); Hemoglobin 12.8 g/dl (12.0-16.0); Imm Gran Abs Auto 0.01 X10*3/uL (0.00-0.03); Imm Gran Pct Auto 0.2 % (0.0-0.4); Lymphocytes Absolute Auto 1.9 X10*3/uL (1.2-4.9); Lymphocytes Percent Auto 32.3 % (20-40); Mean Corpuscular HGB Conc 33.7 g/dl (31.0-35.0); Mean Corpuscular Hemoglobin 32.5 pg (27.0-33.0); Mean Corpuscular Volume 96.4 fL (80.0-98.0); Mean Platelet Volume 10.3 fL (9.4-12.3); Monocytes Absolute Auto 0.4 X10*3/uL (0.1-1.2); Monocytes Percent Auto 6.3 % (2-11); Neutrophils Absolute Auto 3.2 x10*3/uL (2.0-8.3); Platelet Count 282 X10*3/uL (160-400); Red Blood Count 3.94 X10*6/uL (4.20-5.50); Red Cell Distribution Width 12.1 % (11.0-16.0); White Blood Count 5.9 X10*3/uL (4.8-10.8)
[2024-06-28 10:47] LABS: Alanine Aminotransferase 24 U/L (0-31); Albumin Level 4.3 g/dL (3.5-5.0); Alkaline Phosphatase 62 U/L (39-117); Anion Gap 11 (12-20); Aspartate Amino Transferase 28 U/L (5-31); Bilirubin Total 0.4 mg/dL (0.0-1.0); Blood Urea Nitrogen 13 mg/dL (9-16); Carbon Dioxide 24 mmol/L (22-29); Chloride 107 mmol/L (96-108); Cholesterol 230 mg/dL (<200); Estimated Glomerular Filt Rate > 60; Glucose Fasting 90 mg/dL (60-99); HDL Cholesterol 41 mg/dL (>40); LDL Cholesterol Calculated 166 mg/dL (<100); Potassium 3.9 mmol/L (3.3-5.1); Sodium 138 mmol/L (135-145); Total Protein 7.2 g/dL (6.5-8.0); Triglycerides 118 mg/dL (<150)
[2024-06-28 10:49] LABS: TSH reflex Free T4 0.57 uIU/mL (0.32-4.0)
== END 2024-06-28 08:00 | disposition home or self-care (01) ==
LOC: HO.HMGCLDS 07:59
PROVIDERS: PCP Internal Medicine; Visit Provider Internal Medicine
DX: Z00.00 Encounter for general adult medical examination without abnormal findings (principal); E78.5 Hyperlipidemia, unspecified; J45.909 Unspecified asthma, uncomplicated
CPT/HCPCS: 36415; 80053; 80061; 84443; 85025; 96127

== ENCOUNTER 2024-06-28 07:59 | Outpatient (AMB) | payer OTHER, SELFPAY ==
--- NOTE | 2024-06-28 08:13 | A.OFFPC_ITS ---
Vital Signs 06/28/24 08:14 Height 5 ft 2 in Weight 163 lb BMI 29.8 BP 108/76 Blood Pressure Location Lt brachial Position Sitting Pulse 97 Pulse Source Pulse Oximeter Pulse Oximetry (%) 97 Oxygen Delivery Method Room Air Intake Visit Reasons: Annual PE Intake Note: Pt is here today for PE. Allergies peanuts Allergy (Mild, Uncoded 06/28/24 08:15) Anaphylaxis Medication List - Last Reconciled 06/28/24 by Nancy Dalal MD albuterol sulfate 90 mcg/actuation (ProAir HFA) 2 puffs inhalation Q6H PRN epinephrine (EpiPen) 0.3 mg (0.3 mL) IM Q30M PRN fexofenadine (Essie Allergy) PO fluticasone propionate 50 mcg/actuation 1 inh inhalation BID levonorgestrel (Mirena) 1 device intrauterine ONCE montelukast 10 mg PO DAILY Tobacco use date assessed: 06/28/24 Dental Screening Dental Screen Date: 12/16/23 HPI Annual PE HPI Details Pt presents for PE. [facility] Medical History (Updated 04/06/24 @ 11:05 by Kathy Tabor CNM) Adopted Asthma Hyperlipidemia Annual physical exam Surgical History Hx of appendectomy History of tonsillectomy Family History Unknown No problems noted. Unknown No problems noted. Other Mental health disorder Substance use disorder Social History Household Members Other:: adopted, lives with boyfriend, works as a cook at [employer], Housing: Apartment Alcohol intake: current Alcohol intake frequency: a few times a month Patient Tobacco Use Status: Former Tobacco user Tobacco use type: Smokeless Tobacco e-Cigarette/Vaping Use: Currently Using Second Hand Smoke Exposure: No service: No Current occupational status: employed Current occupation: cook Current occupational exposures/hazards: No Sexual orientation: Straight/Heterosexual Gender identity: Female Cognitive needs: No Hearing needs: No Vision needs: Yes Female Reproductive History Menstrual Age of Menarche: 12 Questionnaire PHQ-9 Over the last 2 weeks, how often have you been bothered by any of the following problems? 1. Little interest or pleasure in doing things: not at all 2. Feeling down, depressed, or hopeless: not at all 3. Trouble falling or staying asleep, or sleeping too much: not at all 4. Feeling tired or having little energy: not at all 5. Poor appetite or overeating: not at all 6. Feeling bad about yourself - or that you are a failure or have let yourself or your family down: not at all 7. Trouble concentrating on things, such as reading the newspaper or watching television: not at all 8. Moving or speaking so slowly that other people could have noticed. Or the opposite - being so fidgety or restless that you have been moving around a lot more than usual: not at all 9. Thoughts that you would be better off or of hurting yourself in some way: not at all Total score: 0 Depression Screening Interpretation: Negative Depression Screening Done: Yes 26118 - PHQ-9 Billing: Yes Source: Developed by Drs. Ab Lopez, Janki Fuentes, Claude Aden and colleagues, with an educational uday from [employer]. Thrive Questionnaire Date Thrive assessed: 06/28/24 I am a: Patient What is your living situation today?: I have a steady place to live Within the past 12 months, did the food you bought not last and you didn't have the money to get more?: Never true Within the past 12 months, did you worry whether your food would run out before you got money to buy more?: Never true Do you have trouble paying for medicines?: No Do you have trouble getting transportation to medical appointments?: No Do you have trouble paying your heating and electricity bill?: No Do you have trouble taking care of your child, family member or friend?: No Do you have trouble with day-to-day activities such as bathing, preparing meals, shopping, managing finances, etc.?: No Are you currently unemployed and looking for a job?: No Are you interested in more education?: No Please select the resources that you would like help with: None Currently or been in a relationship where the following occur: No concerns reported THRIVE Score: 0 AUDIT C Alcohol Use Questionnaire (AUDIT-C) 1. How often do you have a drink containing alcohol?: Monthly or less 2. How many drinks containing alcohol do you have on a typical day when you are drinking?: 1 or 2 3. How often do you have six or more drinks on one occasion?: Never Total Score: 1 BARBARA-7 AMB Questionnaire BARBARA-7 Date BARBARA - 7 assessed: 06/28/24 Feeling nervous, anxious, or on edge: 0 = Not at all Not being able to stop or control worryin = Not at all Worrying too much about different things: 0 = Not at all Trouble relaxin = Not at all Being so restless that it is hard to sit still: 0 = Not at all Becoming easily annoyed or irritable: 0 = Not at all Feeling afraid as if something awful might happen: 0 = Not at all Total BARBARA-7 score (0-4 normal; 5-9 mild; 10-14 moderate; 15-21 severe): 0 Source: Developed by Drs. Ab Lopez, Janki Fuentes, Claude Aden and colleagues, with an educational uday from [employer]. BARBARA-7 Assessment Billing BARBARA-7 Assessment Tool: BARBARA-7 Assessment 37915 Review of Systems Const All systems reviewed & are unremarkable except as noted in HPI and below Eyes Reports no additional complaints ENT Reports no additional complaints Card Reports no additional complaints Resp Reports no additional complaints GI Reports no additional complaints Reports no additional complaints Physical exam (Primary Care) Vital Signs: Last Vital Signs Pulse 97 06/28/24 08:14 BP 108/76 06/28/24 08:14 Pulse Ox 97 06/28/24 08:14 Oxygen Delivery Method Room Air 06/28/24 08:14 BMI result Body Mass Index 29.8 Tobacco/Smoking Status: Tobacco use Status Tobacco use date assessed 06/28/24 06/28/24 08:18 Patient Tobacco Use Status Former Tobacco user 06/28/24 08:18 Tobacco use type Smokeless Tobacco 06/28/24 08:18 e-Cigarette/Vaping Use Currently Using 06/28/24 08:18 PHQ-9: PHQ-9 Score PHQ-9: Total score 0 06/28/24 08:18 Depression Screening Interpretation: Negative Thrive Assessment: Date of Thrive Assessment Date Thrive assessed 06/28/24 06/28/24 08:18 Currently or been in a relationship where the following occur: No concerns reported Const General: no acute distress HENMT Head: Yes normal to inspection Ears: hearing grossly normal bilaterally Face and sinus: Yes normal facial exam Mouth: Normal oral and palatal mucosa present Throat: Yes posterior oropharynx normal Eyes General: appearance normal, both eyes and all related structures Neck Neck: Yes no lymphadenopathy and Yes supple Resp Effort & Inspection: normal respiratory effort Auscultation: clear to auscultation bilaterally Cardio Rhythm: regular rhythm Heart sounds: S1 normal heart sound present and S2 normal heart sound present GI Inspection: Yes normal to inspection Palpation (GI): Soft to palpation Percussion: Yes normal to percussion Auscultation: normal bowel sounds Coding Level of Care Code Est Pt Prev Care 18-39y(02242) Diagnoses Asthma J45.909 Annual physical exam Z00.00 Hyperlipidemia E78.5 Seasonal allergies J30.2 Additional Codes BARBARA-7 Assessment Billing - BARBARA-7 Assessment Tool: BARBARA-7 Assessment 81168 ([id number]) PHQ-9 - 73972 - PHQ-9 Billing: Yes ([id number]) Assessment & Plan Assessment & Plan (1) Asthma: Code(s): J45.909 - Unspecified asthma, uncomplicated Category: Medical Plan: Continue steroid inhaler. Patient will check with her insurance formulary. Continue albuterol p.r.n. montelukast and Essie. 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 Panel Fast 1 Year E78.5 - Hyperlipidemia, unspecified, Z00.00 - Encounter for general adult medical examination without abnormal findings Complete Blood Count Auto Diff 1 Year E78.5 - Hyperlipidemia, unspecified, Z00.00 - Encounter for general adult medical examination without abnormal findings Lipid Panel 1 Year E78.5 - Hyperlipidemia, unspecified, Z00.00 - Encounter for general adult medical examination without abnormal findings UA w Microscopic 1 Year E78.5 - Hyperlipidemia, unspecified, Z00.00 - Encounter for general adult medical examination without abnormal findings Referrals Allergy & Immunology Referral J30.2 - Other seasonal allergic rhinitis
[2024-06-28 08:14] VITALS: BP 108/76; PULSE 97; O2SAT 97; BMI 29.8
== END 2024-06-28 08:33 | disposition home or self-care (01) ==
PROVIDERS: PCP Internal Medicine; Visit Provider Internal Medicine
DX: Z00.00 Encounter for general adult medical examination without abnormal findings (principal); J45.909 Unspecified asthma, uncomplicated; E78.5 Hyperlipidemia, unspecified

== ENCOUNTER 2025-01-05 10:11 | Outpatient (AMB) | payer OTHER, SELFPAY ==
--- NOTE | 2025-01-05 10:12 | MHC.OFFVIS ---
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 Doing well with no stonemason supervisor concerns. No regular menses with her Mirena IUD. Currently is sexually active. She denies vaginal itching or irritation. STI screening offered; she declines. She tries to eat healthy and stays active with exercise. Denies family history of breast, ovarian or colon cancer. Last pap smear March 2024, negative. Prior unsatisfactory. [facility] Medical History (Updated 01/05/25 @ 10:35 by Kathy Tabor CNM) IUD (intrauterine device) in place Adopted Asthma Hyperlipidemia Annual physical exam Surgical History Hx of appendectomy History of tonsillectomy Family History Unknown No problems noted. Unknown No problems noted. Other Adopted Mental health disorder Substance use disorder Social History Household Members Other:: adopted, lives with boyfriend, works as a cook at [employer], Housing: Apartment Alcohol intake: current Alcohol intake frequency: a few times a month Patient Tobacco Use Status: Former Tobacco user Tobacco use type: Smokeless Tobacco e-Cigarette/Vaping Use: Currently Using Second Hand Smoke Exposure: No service: No Current occupational status: employed Current occupation: [employer] Current occupational exposures/hazards: No Sexual orientation: Straight/Heterosexual Gender identity: Female Cognitive needs: No Hearing needs: No Vision needs: Yes Female Reproductive History Menstrual Age of Menarche: 12 Date of last menstrual period: 12/17/24 control method: progestin IUCD (Mirena 12/31/23) Total pregnancies: 1 Number of Living Children: 0 Ab induced: 1 Date of last pap smear: 12/24/23 (unsat neg hpv, 04/06/24 neg pap and hpv) Review of Systems Const All systems reviewed & are unremarkable except as noted in HPI and below Reports as per HPI Eyes Reports no additional complaints ENT Reports no additional complaints Card Reports no additional complaints Resp Reports no additional complaints GI Reports as per HPI and Reports no additional complaints Reports as per HPI Musc Reports no additional complaints Skin/Breast Reports as per HPI Neuro Reports no additional complaints Psych Reports no additional complaints Endo Reports no additional complaints Be/Lymph Reports no additional complaints Aller/Immun Reports no additional complaints Physical Exam Vital Signs: BMI result Body Mass Index 27.4 Const General: cooperative, healthy appearing, no acute distress, well developed and alert Orientation/consciousness: patient oriented x3 HEENT Head: Yes normal to inspection Eyes General: appearance normal, both eyes and all related structures Neck Neck: Yes normal visual inspection Thyroid: Thyroid normal Chest Chest palpation & inspection: normal inspection of the chest and other (no puckering, dimpling, peau de orange, retraction, discharge, masses) Breast/axilla inspection: normal inspection of the breasts Breast/axilla palpation: normal palpation of the breasts Resp Effort & Inspection: normal respiratory effort GI Inspection: Yes normal to inspection Palpation (GI): Soft to palpation Rectal Exam - Female: deferred General: Yes bladder normal to palpation External Female Exam: normal external appearance and normal appearance of the urethra Speculum Exam - Vagina: normal appearance of the vagina, normal palpation and normal vaginal discharge Speculum Exam - Cervix: normal appearance of the cervix, normal palpation and Other cervical findings present (IUD strings at the os) Bimanual exam- vagina & uterus: normal bimanual exam, normal palpation, uterine size normal, bladder normal to palpation, normal palpation and non-tender Bimanual Exam- Adnexa, other: no masses Skin General skin exam: no rashes or lesions noted Rashes: no rashes Neuro General: patient oriented x3 Cognition (Neuro): normal cognition Extrem General: Yes normal to inspection Psych Attitude: cooperative Thought process: Normal thought process present Assessment & Plan Assessment & Plan (1) Encounter for well woman exam with routine gynecological exam: Code(s): Z01.419 - Encounter for gynecological examination (general) (routine) without abnormal findings Category: Medical Plan Discussed: Current recommendations for pap smears per ASCCP guidelines. Breast awareness and periodic breast exams. Maintain a healthy lifestyle including a well balanced diet and routine exercise. Patient verbalizes understanding and agrees to the plan of care. She was given opportunity to ask questions and all questions were answered to the best of my ability. RTO in one year for annual stonemason supervisor examination. This note is constructed using voice recognition software. While every effort has been made to ensure accuracy, corporate responsibility officer errors may have been included. Coding Level of Care Code Est Pt Prev Care 18-39y(11133) Diagnoses Encounter for well woman exam with routine gynecological exam Z01.419
[2025-01-05 10:19] VITALS: BP 100/66; BMI 27.4
== END 2025-01-05 11:01 | disposition home or self-care (01) ==
LOC: HO.HWS 10:11
PROVIDERS: PCP Internal Medicine; Visit Provider Advanced Practice Midwife
DX: Z01.419 Encounter for gynecological examination (general) (routine) without abnormal findings (principal)
CPT/HCPCS: 99395; 99459

== ENCOUNTER 2025-05-04 11:52 | Outpatient (AMB) | payer OTHER, SELFPAY ==
--- NOTE | 2025-05-04 12:45 | A.OFFPC_ITS ---
Vital Signs 05/04/25 12:46 Height 5 ft 2 in Weight 156 lb BMI 28.5 BP 94/66 Blood Pressure Location Rt brachial Position Sitting Respiration 18 Pulse 99 Pulse Source Pulse Oximeter Temp 98.1 F Temp Source Oral Pulse Oximetry (%) 98 Oxygen Delivery Method Room Air Intake Visit Reasons: Mental burnout and trouble paying attention Intake Note: Pt is here today for a sick visit. Pt c/o more anxious and trouble concentrating. Allergies peanuts Allergy (Mild, Uncoded 05/04/25 12:49) Anaphylaxis Medication List - Last Reconciled 05/04/25 by Nancy Dalal MD albuterol sulfate 90 mcg/actuation (ProAir HFA) 2 puffs inhalation Q6H PRN epinephrine (EpiPen) 0.3 mg (0.3 mL) IM Q30M PRN fexofenadine (Essie Allergy) PO fluticasone furoate 100 mcg/actuation (Arnuity Ellipta) 1 inh inhalation DAILY levonorgestrel (Mirena) 1 device intrauterine ONCE montelukast 10 mg PO DAILY Tobacco use date assessed: 05/04/25 Dental Screening Dental Screen Date: 05/04/25 Did you have a dental visit in the last 12 months?: Yes Did you have a dental problem in the last 6 months where you did not have access to dental care?: No Was dental information given to patient?: Patient has dentist HPI Mental burnout and trouble paying attention HPI Details Pt presents for f/u. Pt has L knee injury in January and has been in PT for 3 weeks with some improvement. Patient reports having difficulty bernie ntrating, feeling sad and missing her friends and family in [place]. Patient is concerned about having ADHD and would like to be tested. She denies depression or suicide ideation change in appetite or sleeping pattern [facility] Medical History (Updated 05/04/25 @ 13:18 by Nancy Dalal MD) IUD (intrauterine device) in place Adopted Asthma Hyperlipidemia Annual physical exam Surgical History Hx of appendectomy History of tonsillectomy Family History Unknown No problems noted. Unknown No problems noted. Other Adopted Mental health disorder Substance use disorder Social History Household Members Other:: adopted, lives with boyfriend, works as a cook at [employer], Housing: Apartment Alcohol intake: current Alcohol intake frequency: a few times a month Patient Tobacco Use Status: Former Tobacco user Tobacco use type: Smokeless Tobacco e-Cigarette/Vaping Use: Currently Using Second Hand Smoke Exposure: No service: No Current occupational status: employed Current occupation: cook Current occupational exposures/hazards: No Sexual orientation: Straight/Heterosexual Gender identity: Female Cognitive needs: No Hearing needs: No Vision needs: Yes Female Reproductive History Menstrual Age of Menarche: 12 Questionnaire PHQ-9 Over the last 2 weeks, how often have you been bothered by any of the following problems? 1. Little interest or pleasure in doing things: several days 2. Feeling down, depressed, or hopeless: several days 3. Trouble falling or staying asleep, or sleeping too much: several days 4. Feeling tired or having little energy: several days 5. Poor appetite or overeating: not at all 6. Feeling bad about yourself - or that you are a failure or have let yourself or your family down: several days 7. Trouble concentrating on things, such as reading the newspaper or watching television: several days 8. Moving or speaking so slowly that other people could have noticed. Or the opposite - being so fidgety or restless that you have been moving around a lot more than usual: not at all 9. Thoughts that you would be better off or of hurting yourself in some way: not at all Total score: 6 Depression Screening Interpretation: Negative Depression Screening Done: Yes 54792 - PHQ-9 Billing: Yes Source: Developed by Drs. Ab Lopez, Janki Fuentes, Claude Aden and colleagues, with an educational uday from [employer]. Thrive Questionnaire Date Thrive assessed: 05/04/25 I am a: Patient What is your living situation today?: I have a steady place to live Within the past 12 months, did the food you bought not last and you didn't have the money to get more?: Never true Within the past 12 months, did you worry whether your food would run out before you got money to buy more?: Never true Do you have trouble paying for medicines?: No Do you have trouble getting transportation to medical appointments?: No Do you have trouble paying your heating and electricity bill?: No Do you have trouble taking care of your child, family member or friend?: No Do you have trouble with day-to-day activities such as bathing, preparing meals, shopping, managing finances, etc.?: No Are you currently unemployed and looking for a job?: No Are you interested in more education?: No Please select the resources that you would like help with: None Currently or been in a relationship where the following occur: No concerns reported THRIVE Score: 0 AUDIT C Alcohol Use Questionnaire (AUDIT-C) 1. How often do you have a drink containing alcohol?: Monthly or less 2. How many drinks containing alcohol do you have on a typical day when you are drinking?: 1 or 2 3. How often do you have six or more drinks on one occasion?: Never Total Score: 1 BARBARA-7 AMB Questionnaire BARBARA-7 Date BARBARA - 7 assessed: 05/04/25 Feeling nervous, anxious, or on edge: 1 = Several days Not being able to stop or control worryin = Several days Worrying too much about different things: 1 = Several days Trouble relaxin = Several days Being so restless that it is hard to sit still: 1 = Several days Becoming easily annoyed or irritable: 1 = Several days Feeling afraid as if something awful might happen: 0 = Not at all Total BARBARA-7 score (0-4 normal; 5-9 mild; 10-14 moderate; 15-21 severe): 6 Source: Developed by Drs. Ab Lopez, Janki Fuentes, Claude Aden and colleagues, with an educational uday from [employer]. BARBARA-7 Assessment Billing BARBARA-7 Assessment Tool: BARBARA-7 Assessment 15829 Review of Systems Const All systems reviewed & are unremarkable except as noted in HPI and below Eyes Reports no additional complaints ENT Reports no additional complaints Card Reports no additional complaints Resp Reports no additional complaints GI Reports no additional complaints Reports no additional complaints Musc Reports no additional complaints Physical exam (Primary Care) Vital Signs: Last Vital Signs Temp 98.1 F 05/04/25 12:46 Pulse 99 05/04/25 12:46 Resp 18 05/04/25 12:46 BP 94/66 05/04/25 12:46 Pulse Ox 98 05/04/25 12:46 Oxygen Delivery Method Room Air 05/04/25 12:46 BMI result Body Mass Index 28.5 Tobacco/Smoking Status: Tobacco use Status Tobacco use date assessed 05/04/25 05/04/25 12:51 Patient Tobacco Use Status Former Tobacco user 05/04/25 12:51 Tobacco use type Smokeless Tobacco 05/04/25 12:51 e-Cigarette/Vaping Use Currently Using 05/04/25 12:51 PHQ-9: PHQ-9 Score PHQ-9: Total score 6 05/04/25 13:16 Depression Screening Interpretation: Negative Thrive Assessment: Date of Thrive Assessment Date Thrive assessed 05/04/25 05/04/25 12:51 Currently or been in a relationship where the following occur: No concerns reported Const General: no acute distress HENMT Head: Yes normal to inspection Face and sinus: Yes normal facial exam Throat: Yes posterior oropharynx normal Eyes General: appearance normal, both eyes and all related structures Resp Effort & Inspection: normal respiratory effort Auscultation: clear to auscultation bilaterally Cardio Rhythm: regular rhythm Heart sounds: S1 normal heart sound present and S2 normal heart sound present GI Inspection: Yes normal to inspection Palpation (GI): Soft to palpation Percussion: Yes normal to percussion Auscultation: normal bowel sounds Coding Level of Care Code Est Pt Level 4 (55942) Diagnoses Anxiety F41.9 ADHD F90.9 Additional Codes BARBARA-7 Assessment Billing - BARBARA-7 Assessment Tool: BARBARA-7 Assessment 15075 ([id number]) PHQ-9 - 78362 - PHQ-9 Billing: Yes ([id number]) Assessment & Plan Assessment & Plan (1) Anxiety: Code(s): F41.9 - Anxiety disorder, unspecified Category: Medical Plan: Stress management discussed with the patient, she will schedule counseling. Patient declined medications (2) ADHD: Code(s): F90.9 - Attention-deficit hyperactivity disorder, unspecified type Category: Medical Plan: Patient will be referred to [facility] Orders: Referrals Psychiatry Referral F90.9 - Attention-deficit hyperactivity disorder, unspecified type
[2025-05-04 12:46] VITALS: BP 94/66; PULSE 99; RESP 18; TEMP 36.7; O2SAT 98; BMI 28.5
== END 2025-05-04 13:34 | disposition home or self-care (01) ==
LOC: HO.HMCC 11:53
PROVIDERS: PCP Internal Medicine; Visit Provider Internal Medicine
DX: F41.9 Anxiety disorder, unspecified (principal); F90.9 Attention-deficit hyperactivity disorder, unspecified type

== ENCOUNTER → 2025-05-04 11:52 | Outpatient (BNVA) | payer OTHER, SELFPAY | PROVIDERS: PCP Internal Medicine; Visit Provider Internal Medicine | DX: F90.9 Attention-deficit hyperactivity disorder, unspecified type (principal); F41.9 Anxiety disorder, unspecified | CPT/HCPCS: 96127 ==